=== PATIENT | male | born 1980 | race American Indian/Alaskan Native ===

== ENCOUNTER 2018-05-17 06:59 | Emergency (ER) | payer SELFPAY ==
[2018-05-17] MEDS ORDERED: ASPIRIN PO ONE (07:07)
[2018-05-17 07:22] LABS: Basophils % (Auto) 0.9 % (0.0-1.8); Eosinophils # (Auto) 0.2 K/mm3 (0.0-0.4); Eosinophils % (Auto) 3.7 % (0.0-4.3); Hematocrit 38.9 % (35.5-45.6); Hemoglobin 12.7 gm/dl (11.8-15.2); Lymphocytes # (Auto) 1.5 K/mm3 (1.2-5.4); Lymphocytes % (Auto) 31.4 % (13.4-35.0); Mean Corpuscular HGB Conc 33 % (32-34); Mean Corpuscular Volume 93 fl (84-94); Monocytes # (Auto) 0.5 K/mm3 (0.0-0.8); Monocytes % (Auto) 10.7 % (0.0-7.3); Platelet Count 332 K/mm3 (140-440); Red Blood Count 4.18 M/mm3 (3.65-5.03); Red Cell Distribution Width 17.4 % (13.2-15.2)
[2018-05-17 07:43] LABS: BUN/Creatinine Ratio 14; Blood Urea Nitrogen 11 mg/dL (9-20); Calcium 8.4 mg/dL (8.4-10.2); Hemolysis Index 3
--- NOTE | 2018-05-17 07:54 | XRay Report ---
Single view chest: Next History: Chest pain. Findings: Normal cardiomediastinal silhouette. Trachea is midline. No consolidation, pneumothorax or pleural effusion. Impression: No acute cardiopulmonary findings.
[2018-05-17] MEDS ORDERED: TORADOL IV ONE (10:57)
[2018-05-17] MEDS ORDERED: PEPCID IV ONE (10:57)
[2018-05-17] MEDS ORDERED: TYLENOL PO ONE (10:57)
[2018-05-17] MEDS ORDERED: NACL 0.9% 500 ML 500 ML IV ONE (10:57)
[2018-05-17] MEDS ORDERED: CARAFATE PO ONE (10:57)
--- NOTE | 2018-05-17 10:58 | Emergency Department Report ---
ED Chest Pain HPI - General Chief Complaint: Chest Pain Stated Complaint: EXTREMITY SWELLING CHEST PAIN Time Seen by Provider: 05/17/18 10:44 Source: patient, RN notes reviewed Mode of arrival: Ambulatory Limitations: No Limitations - History of Present Illness Initial Comments: This is a 37-year-old gentleman who is not known to this provider previously. The patient does not have a primary care doctor. He does not have chronic medical conditions that he is aware. There is a family history of hypertension, but otherwise no heart disease that he is aware of. He appears to be obese. He presents to the emergency room with a complaint of chest pain, subjective right hand swelling, subjective left pointer finger swelling, and subjective left leg swelling, from the knee distal. Swelling has been present for 2-3 days. It is constant, painless, does not radiate anywhere, does not have exacerbating or relieving factors. He denies DVT, pulmonary embolus risk factors. He is right-hand dominant. He reports with a secondary complaint of chest pain. The chest pain is central. It has been present intermittently since 1 in the morning. It radiates to the right side of the chest. There is no vomiting or diaphoresis. He describes "trouble breathing", and indicates that this is been going on for 2 days. He does not believe that it is exertional. He is currently experiencing chest pain, which has been constant, since 7:00 in the morning. This pain does not radiate anywhere, and increased with palpation and decreases with rest. He denies recent cocaine use, and endorses aspirin consumption within the past 3 days. On review of systems, the patient indicates that he feels sleepy during the day, and sometimes will fall asleep without wanting to. As far as the patient knows, he does not have a history of obstructive sleep apnea. He's not had a sleep test that he is aware of. He endorses that he feels on rested and tired, even after full night's sleep. He also endorses that he snores at night. MD Complaint: chest pain -: Gradual, days(s) Onset: during rest Pain Location: left chest, right chest Severity scale (0 -10): 10 Quality: aching Consistency: intermittent Improves With: rest Worsens With: palpation re: dyspnea Aspirin use within the Past 7 Days: (1) Yes - Related Data Previous Rx's Medication Instructions Recorded Last Taken Type Acetaminophen [Tylenol Arthritis] 650 mg PO Q6HR PRN #30 tablet.er 05/17/18 Unknown Rx Aspirin [Aspirin BABY CHEW TAB] 81 mg PO QDAY #30 tab.chew 05/17/18 Unknown Rx Ibuprofen [Motrin] 600 mg PO Q8H PRN #30 tablet 05/17/18 Unknown Rx levoFLOXacin [Levaquin] 750 mg PO QDAY #6 tablet 05/17/18 Unknown Rx Allergies Allergy/AdvReac Type Severity Reaction Status Date / Time No Known Allergies Allergy Verified 05/17/18 07:05 Heart Score - HEART Score History: Slightly suspicious EKG: Non-specific Age: < 45 Risk factors: 1-2 risk factors Troponin: < normal limit HEART Score: 2 - Critical Actions Critical Actions: 0-3 pts:0.9-1.7%risk of adverse cardiac event.Candidate for d ischarge ED Review of Systems ROS: Stated complaint: EXTREMITY SWELLING CHEST PAIN Other details as noted in HPI Constitutional: denies: fever, malaise Eyes: denies: vision change ENT: denies: epistaxis Respiratory: shortness of breath Cardiovascular: chest pain Gastrointestinal: denies: nausea, vomiting Genitourinary: denies: urgency Musculoskeletal: arthralgia, myalgia Skin: denies: lesions Neurological: denies: weakness Psychiatric: denies: anxiety ED Past Medical Hx - Past Medical History Previous Medical History?: Yes Hx Arthritis: Yes (gout) Hx Asthma: Yes - Surgical History Past Surgical History?: No - Social History Smoking Status: Never Smoker Substance Use Type: None - Medications Home Medications: Home Medications Medication Instructions Recorded Confirmed Last Taken Type Acetaminophen [Tylenol Arthritis] 650 mg PO Q6HR PRN #30 tablet.er 05/17/18 Unknown Rx Aspirin [Aspirin BABY CHEW TAB] 81 mg PO QDAY #30 tab.chew 05/17/18 Unknown Rx Ibuprofen [Motrin] 600 mg PO Q8H PRN #30 tablet 05/17/18 Unknown Rx levoFLOXacin [Levaquin] 750 mg PO QDAY #6 tablet 05/17/18 Unknown Rx ED Physical Exam - General Limitations: No Limitations General appearance: alert, in no apparent distress, obese - Head Head exam: Present: atraumatic, normocephalic - Eye Eye exam: Present: normal appearance, EOMI. Absent: nystagmus - ENT ENT exam: Present: normal exam, normal orophraynx, mucous membranes moist, normal external ear exam - Neck Neck exam: Present: normal inspection, full ROM. Absent: tenderness, meningismus - Respiratory Respiratory exam: Present: normal lung sounds bilaterally, chest wall tend erness. Absent: respiratory distress - Cardiovascular Cardiovascular Exam: Present: regular rate, normal rhythm, normal heart sounds. Absent: bradycardia, tachycardia, irregular rhythm, systolic murmur, diastolic murmur, rubs, gallop - GI/Abdominal GI/Abdominal exam: Present: soft. Absent: distended, tenderness, guarding, rebound, rigid, pulsatile mass - Rectal Rectal exam: Present: deferred - Extremities Exam Extremities exam: Present: normal inspection, full ROM, other (2+ pulses noted in the bilateral upper, lower extremities. Compartments soft. No long bony tenderness. The pelvis is stable.). Absent: pedal edema, joint swelling, calf tenderness - Back Exam Back exam: Present: normal inspection, full ROM. Absent: tenderness, CVA tenderness (R), paraspinal tenderness, vertebral tenderness - Neurological Exam Neurological exam: Present: alert, oriented X3, CN II-XII intact, other (myExtraocular movements intact. Tongue midline. No facial droop. Facial sensation intact to light touch in the V1, V2, V3 distribution bilaterally. 5 and 5 strength in 4 extremities.. Sensation is intact to light touch in 4 extremities.). Absent: motor sensory deficit - Psychiatric Psychiatric exam: Present: normal affect, normal mood - Skin Skin exam: Present: warm, dry, intact, normal color. Absent: rash ED Course Vital Signs 05/17/18 05/17/18 05/17/18 07:00 09:46 10:30 Temperature 97.7 F Pulse Rate 95 H 106 H Respiratory 18 17 18 Rate Blood Pressure 197/133 O2 Sat by Pulse 99 98 98 Oximetry 05/17/18 05/17/18 05/17/18 10:31 10:46 11:00 Temperature Pulse Rate 85 81 Respiratory 18 17 Rate Blood Pressure 163/110 163/110 163/96 O2 Sat by Pulse 99 98 99 Oximetry 05/17/18 05/17/18 05/17/18 11:16 11:30 11:46 Temperature Pulse Rate 67 95 H 72 Respiratory 15 20 17 Rate Blood Pressure 163/96 163/96 163/96 O2 Sat by Pulse 97 98 97 Oximetry 05/17/18 05/17/18 05/17/18 12:00 12:16 12:40 Temperature Pulse Rate 90 92 H 92 H Respiratory 15 16 Rate Blood Pressure 163/96 163/96 O2 Sat by Pulse 98 96 Oximetry 05/17/18 05/17/18 05/17/18 12:46 13:23 13:31 Temperature Pulse Rate 92 H 82 Respiratory 13 16 Rate Blood Pressure 169/97 169/97 169/97 O2 Sat by Pulse 98 97 98 Oximetry 05/17/18 05/17/18 05/17/18 13:45 14:01 14:15 Temperature Pulse Rate 83 75 79 Respiratory 21 15 20 Rate Blood Pressure 169/97 169/97 169/97 O2 Sat by Pulse 98 97 96 Oximetry 05/17/18 05/17/18 05/17/18 14:31 14:47 14:50 Temperature 98.5 F Pulse Rate 98 H Respiratory 15 Rate Blood Pressure 169/97 169/97 O2 Sat by Pulse 97 Oximetry - Reevaluation(s) Reevaluation #1: 05/17/18 11:52 Differential diagnosis, including but not limited to: GERD, gastritis, hiatal hernia, acute coronary syndrome, pulmonary hypertension, pulmonary embolus, costochondritis, arthritis, obesity, DVT, obstructive sleep apnea Assessment and plan: 37-year-old gentleman with no pulmonary embolus or DVT risk factors, who is low risk by well's criteria, was not tachycardic, who is not hypoxic, who is perc negative, with reproducible chest wall pain, currently appears comfortable, and in no acute distress, having a full conversation with family members. Patient at low risk by the FARHAD score, low risk by the heart score. Initially hypertensive when he came in, now blood pressure in the 160s. I do not appreciate any significant edema on his upper, lower extremities, and he has full active and passive range of motion on the upper, lower extremities, with no evidence of fracture, cellulitis, compartment syndrome, or dislocation. We will treat his pain, obtain serial EKGs, serial troponins, send a d-dimer, and obtain lower extremity DVT study. We will reassess after his data points have resulted. I suspect that the patient may have undiagnosed pulmonary hypertension, obstructive sleep apnea. He does not have crackles or rales, and does not appear to be floridly fluid overloaded. Reevaluation #2: 05/17/18 13:38 CT scan of the chest is negative for pulmonary embolism. A right lower lobe infiltrate is noted. Blood pressure is improved. Patient walking around comfortably, and in no acute distress. We will start the patient empirically on levofloxacin, and aspirin. He will be discharged with appropriate pain medication. He is instructed to follow-up with an outpatient head of marketing or sleep physician for his presumed non-diagnosed obstructive sleep apnea, and he'll be instructed to follow-up with an outpatient doctor of nurse anesthesia for presumed hypertension, and chest pain, troponins negative 3, he is suitable to follow up as an outpatient to complete his outp atient cardiac risk stratification, and to follow up with a primary care doctor for general medical maintenance. Reevaluation #3: 05/17/18 14:29 Troponin negative 3. Resting comfortably. Patient in no acute distress. Reevaluation #4: 05/17/18 14:36 Troponin negative 3. Patient resting comfortably currently, and is in no acute distress. Explained need to follow up with outpatient primary care, cardiology, and sleep specialist. Patient verbalizes understanding. He reports his pain is improved. Patient is observed in the emergency room for approximately 7 hours without clinical decompensation, and he is suitable to be discharged. Extensive discussion had with patient regarding need for diet and left modification, as well as weight loss. He verbalizes understanding. Reevaluation #5: 05/17/18 19:00 DVT study is negative FARHAD score - Farhad Score Age > 65: (0) No Aspirin use within the Past 7 Days: (1) Yes 3 or more CAD Risk Factors: (0) No 2 or more Angina events in past 24 hrs: (0) No Known CAD with more than 50% Stenosis: (0) No Elevated Cardiac Markers: (0) No ST Deviation Greater than 0.5mm: (0) No FARHAD Score: 1 ED Medical Decision Making - Lab Data Result diagrams: 05/17/18 07:10 05/17/18 07:09 Vital Signs 05/17/18 07:00 Temperature 97.7 F Pulse Rate 95 H Respiratory 18 Rate Blood Pressure 197/133 O2 Sat by Pulse 99 Oximetry Lab Results 04/03/19 04/03/19 04/03/19 Range/Units 07:09 07:10 10:14 WBC 4.7 (4.5-11.0) K/mm3 RBC 4.18 (3.65-5.03) M/mm3 Hgb 12.7 (11.8-15.2) gm/dl Hct 38.9 (35.5-45.6) % MCV 93 (84-94) fl MCH 30 (28-32) pg MCHC 33 (32-34) % RDW 17.4 H (13.2-15.2) % Plt Count 332 (140-440) K/mm3 Lymph % (Auto) 31.4 (13.4-35.0) % Cam[place] % (Auto) 10.7 H (0.0-7.3) % Eos % (Auto) 3.7 (0.0-4.3) % Baso % (Auto) 0.9 (0.0-1.8) % Lymph # 1.5 (1.2-5.4) K/mm3 Cam[place] # 0.5 (0.0-0.8) K/mm3 Eos # 0.2 (0.0-0.4) K/mm3 Baso # 0.0 (0.0-0.1) K/mm3 Seg Neutrophils % 53.3 (40.0-70.0) % Seg Neutrophils # 2.5 (1.8-7.7) K/mm3 PT (12.2-14.9) Sec. INR (0.87-1.13) APTT (24.2-36.6) Sec. D-Dimer (0-234) ng/mlDDU Sodium 136 L (137-145) mmol/L Potassium 3.9 (3.6-5.0) mmol/L Chloride 100.3 (98-107) mmol/L Carbon Dioxide 25 (22-30) mmol/L Anion Gap 15 mmol/L BUN 11 (9-20) mg/dL Creatinine 0.8 (0.8-1.5) mg/dL Estimated GFR > 60 ml/min BUN/Creatinine Ratio 14 % Glucose 115 H (75-100) mg/dL Calcium 8.4 (8.4-10.2) mg/dL Troponin T < 0.010 < 0.010 (0.00-0.029) ng/mL 05/17/18 Range/Units 11:09 WBC (4.5-11.0) K/mm3 RBC (3.65-5.03) M/mm3 Hgb (11.8-15.2) gm/dl Hct (35.5-45.6) % MCV (84-94) fl MCH (28-32) pg MCHC (32-34) % RDW (13.2-15.2) % Plt Count (140-440) K/mm3 Lymph % (Auto) (13.4-35.0) % [place] % (Auto) (0.0-7.3) % Eos % (Auto) (0.0-4.3) % Baso % (Auto) (0.0-1.8) % Lymph # (1.2-5.4) K/mm3 [place] # (0.0-0.8) K/mm3 Eos # (0.0-0.4) K/mm3 Baso # (0.0-0.1) K/mm3 Seg Neutrophils % (40.0-70.0) % Seg Neutrophils # (1.8-7.7) K/mm3 PT 11.8 L (12.2-14.9) Sec. INR 0.82 L (0.87-1.13) APTT 24.5 (24.2-36.6) Sec. D-Dimer 340.85 H (0-234) ng/mlDDU Sodium (137-145) mmol/L Potassium (3.6-5.0) mmol/L Chloride (98-107) mmol/L Carbon Dioxide (22-30) mmol/L Anion Gap mmol/L BUN (9-20) mg/dL Creatinine (0.8-1.5) mg/dL Estimated GFR ml/min BUN/Creatinine Ratio % Glucose (75-100) mg/dL Calcium (8.4-10.2) mg/dL Troponin T (0.00-0.029) ng/mL - EKG Data -: EKG Interpreted by Ks EKG shows normal: sinus rhythm Rate: normal - EKG Data When compared to previous EKG there are: previous EKG unavailable 05/17/18 11:54 EKG #1 demonstrates sinus, 85 bpm, normal axis, normal intervals, QTC prolonged. EKG #2 demonstrates normal sinus, 78 bpm, normal axis, normal intervals, not consistent with ST elevation myocardial infarction. - Radiology Data Radiology results: report reviewed, image reviewed Critical care attestation.: If time is entered above; I have spent that time in minutes in the direct care of this critically ill patient, excluding procedure time. ED Disposition Clinical Impression: Right-sided chest pain, Elevated blood pressure reading Disposition: TO HOME OR SELFCARE Is pt being admited?: No Does the pt Need Aspirin: No Condition: Stable Instructions: Chest Pain (ED), Costochondritis (ED), Hypertension (ED) Additional Instructions: Drink 4-6 cups of water per day for the next 3-5 days. Rest, avoid heavy lifting and avoid strenuous physical activity. Take the pain medication as needed/directed, aspirin, antibiotics as directed. Follow up with a doctor of nurse anesthesia within the next 3 days for elevated blood pressure and complaints of chest pain. Chest pain likely coming from right-sided pneumonia. Local cardiology practices include [facility], [place]. Patient should follow up with a sleep specialist within the next month for probable obstructive sleep apnea. Not following up as recommended may result in undiagnosed or worsening sleep apnea, which may cause pulmonary hypertension, heart failure, stroke, heart attack, disability. I also recommend aggressive weight loss, physical activities as tolerated, and modification of diet to include more fruits, fibers, vegetables, avoidance of sugar, sugary drinks, avoidance of caffeine, and avoidance of fried, heavy, spicy foods. Local sleep specialist include Drs. Vann, Dr Cunha patient should follow-up with the primary care doctor within the next month. Patient is found to have hypertension, elevated blood pressure in the emergency room. Typically, diet and weight loss and diet modifications on the first line treatment for treatment of elevated blood pressure, hypertension. Long-term complications of hypertension includes stroke, heart attack, disability, pa ralysis, loss of quality of life. Local primary care offices include [facility], [facility]. Please return to the emergency room right away with new, worsening or different symptoms, projectile vomiting, change in mental status, confusion, symptoms not present on the initial ER evaluation. Prescriptions: Aspirin [Aspirin BABY CHEW TAB] 81 mg PO QDAY #30 tab.chew levoFLOXacin [Levaquin] 750 mg PO QDAY #6 tablet Ibuprofen [Motrin] 600 mg PO Q8H PRN #30 tablet PRN Reason: Pain Acetaminophen [Tylenol Arthritis] 650 mg PO Q6HR PRN #30 tablet.er PRN Reason: Pain Referrals: FABIAN VANN MD [Staff Physician] - 3-5 Days PAOLA CUNHA MD [Staff Physician] - 3-5 Days [facility] [Provider Group] - 3-5 Days [facility] [Provider Group] - 3-5 Days [facility] [Provider Group] - 3-5 Days [facility] [Provider Group] - 3-5 Days Forms: Work/School Release Form(ED)
[2018-05-17 11:44] LABS: INR 0.82 (0.87-1.13)
[2018-05-17 11:45] LABS: Partial Thromboplastin Time 24.5 Sec. (24.2-36.6)
[2018-05-17 12:26] LABS: Alanine Aminotransferase 26 units/L (7-56)
[2018-05-17 12:28] LABS: Bilirubin,Direct < 0.2 mg/dL (0-0.2)
--- NOTE | 2018-05-17 13:32 | Cat Scan Report ---
CTA chest: History: Dyspnea. Findings: No evidence of aneurysm or pulmonary embolism. Faint ill-defined density right lower lobe measuring approximately 2 cm in diameter probably suggestive pneumonitis or discoid atelectasis. No pleural or pericardial effusion. No mediastinal mass. Pleurodiaphragmatic adhesions left lower lobe. Impression: Infiltrate right lower lobe. No definite evidence of pulmonary embolism
[2018-05-17 15:01] VITALS: BP 169/97
--- NOTE | 2018-05-17 15:46 | Vascular Lab Report ---
PROCEDURE: VL VENOUS DUPLEX LE BILAT TECHNIQUE: Duplex Doppler ultrasound examination of the venous system of the right leg and left leg HISTORY: Bilateral lower ext swelling COMPARISONS: None FINDINGS: RIGHT LEG: Normal compressibility, vascular patency, and augmentation are present diffusely throughout the visua lized portion of the deep veins. No abnormal intraluminal echoes are visualized to suggest deep vein thrombus. IMPRESSION: No ultrasound evidence of DVT in the right leg LEFT LEG: Normal compressibility, vascular patency, and augmentation are present diffusely throughout the visua lized portion of the deep veins. No abnormal intraluminal echoes are visualized to suggest deep vein thrombus. A nonspecific popliteal fossa hypoechoic focus is suggestive of a very small fluid collection measuri ng 0.9 x 1.8 cm. Color Doppler reveals no internal vascularity in this lesion. This may reflect a Navin er's cyst. Nonspecific prominent lymph node in the left inguinal fossa with short axis dimension 14 mm. Deep venous reflux suggested in left popliteal vein. IMPRESSION: Popliteal fossa fluid collection suggestive of very small Casillas's cyst. No ultrasound evidence of DVT in the left leg Deep venous reflux suggested in left popliteal vein This document is electronically signed by Casey Medrano MD., May 17 2018 03:44:17 PM ET
== END 2018-05-17 14:50 | disposition home or self-care (01) ==
LOC: ED 06:59
DX: R07.89 Other chest pain (principal); I10 Essential (primary) hypertension; M10.9 Gout, unspecified; J45.909 Unspecified asthma, uncomplicated; Z79.82 Long term (current) use of aspirin
CPT/HCPCS: 36415; 71045; 71275; 80048; 80076; 84484; 85025; 85379; 85610; 85730; 93005; 93010; 93970; 96374; 96375; 99285; J1885; J7040; Q9967

== ENCOUNTER 2018-10-30 09:48 | Emergency (ER) | payer OTHER ==
[2018-10-30 10:20] VITALS: BP 134/83
[2018-10-30] MEDS ORDERED: TORADOL IM ONE (10:55)
[2018-10-30] MEDS ORDERED: FLEXERIL PO ONE (10:55)
--- NOTE | 2018-10-30 11:00 | Emergency Department Report ---
HPI - General Chief Complaint: Back Pain/Injury Time Seen by Provider: 10/30/18 10:46 - HPI HPI: 38-year-old -[place] male presents to the emergency department via EMS from home with a complaint of mid back pain that started last night and has wors ened since. The pain wraps around towards the front of the abdomen. It worsens with any type of movement and with breathing. 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 He denies any problems with bowel or bladder, numbness or paresthesias or any neurological deficits. He has a past medical history of gout, asthma, hypertension. He has some chronic right knee pain as well, as well as some knee swelling, that he says is from arthritis and gout. He does not have a primary care physician. No recent travel or sick contacts at home. ED Past Medical Hx - Past Medical History Previous Medical History?: Yes Hx Hypertension: Yes Hx Arthritis: Yes (gout) Hx Asthma: Yes - Surgical History Past Surgical History?: No - Social History Smoking Status: Never Smoker - Medications Home Medications: Home Medications Medication Instructions Recorded Confirmed Last Taken Type Acetaminophen [Tylenol Arthritis] 650 mg PO Q6HR PRN #30 tablet.er 05/17/18 Unknown Rx Aspirin [Aspirin BABY CHEW TAB] 81 mg PO QDAY #30 tab.chew 05/17/18 Unknown Rx Ibuprofen [Motrin] 600 mg PO Q8H PRN #30 tablet 05/17/18 Unknown Rx levoFLOXacin [Levaquin] 750 mg PO QDAY #6 tablet 05/17/18 Unknown Rx Cyclobenzaprine [Flexeril] 10 mg PO TID PRN #12 tablet 10/30/18 Unknown Rx ED Review of Systems ROS: Stated complaint: BACK PAIN Other details as noted in HPI Comment: All other systems reviewed and negative Constitutional: denies: chills, fever Respiratory: denies: cough, wheezing Cardiovascular: denies: chest pain Musculoskeletal: back pain, arthralgia (chronic right knee pain), myalgia Skin: denies: rash, lesions Neurological: denies: weakness, numbness, paresthesias Physical Exam - Physical Exam Vital Signs: Vital Signs 10/30/18 10:19 Temperature 99.4 F Pulse Rate 83 Respiratory 22 Rate Blood Pressure 134/83 O2 Sat by Pulse 99 Oximetry Physical Exam: GENERAL: The patient is well-developed well-nourished. HENT: Normocephalic. Atraumatic. Patient has moist mucous membranes. EYES: Extraocular motions are intact. NECK: Supple. Trachea is midline. CHEST/LUNGS: Clear to auscultation. There is no respiratory distress noted. HEART/CARDIOVASCULAR: Regular. There is no tachycardia. There is no murmur. ABDOMEN: Abdomen is soft, nontender. Patient has normal bowel sounds. Obese habitus. SKIN: Skin is warm and dry. NEURO: The patient is awake, alert, and oriented. The patient is cooperative. The patient has no focal neurologic deficits. Normal speech. MUSCULOSKELETAL: There is no tenderness or deformity. There is no limitation range of motion. There is no evidence of acute injury. BACK: No midline thoracic or lumbar tenderness to palpation, step-off or d eformity. There is bilateral mid thoracic paraspinal tenderness to palpation. ED Course Vital Signs 10/30/18 10:19 Temperature 99.4 F Pulse Rate 83 Respiratory 22 Rate Blood Pressure 134/83 O2 Sat by Pulse 99 Oximetry ED Medical Decision Making - Medical Decision Making This patient presents with some mid back pain that has been going on since last night. The pain is reproducible to palpation and also worsens with certain movements he makes. There is no problem with bowel or bladder, numbness or paresthesias, or any neurological deficits. No obvious trauma or injury. For these reasons, I did not feel that any imaging of the thoracic spine or back was necessary at this time. He was given a dose of Toradol and Flexeril and upon reevaluation he is feeling improved. The patient was able to ambulate in the emergency department and both appeared and felt stable. He appears low suspicion for any of the emergent back conditions such as cauda equina, epidural abscess or cord compression syndrome. Patient has been given a referral for orthopedist and primary care. He will return to the ER if any worsening of his symptoms or any acute distress. - Differential Diagnosis muscle strain, muscle spasm, herniated disc Critical Care Time: No Critical care attestation.: If time is entered above; I have spent that time in minutes in the direct care of this critically ill patient, excluding procedure time. ED Disposition Clinical Impression: Back pain Qualifiers: Back pain location: thoracic back pain Chronicity: unspecified Back pain laterality: bilateral Qualified Code(s): M54.6 - Pain in thoracic spine Disposition: TO HOME OR SELFCARE Is pt being admited?: No Condition: Stable Instructions: Back Pain (ED) Additional Instructions: Please follow-up with a primary care physician in the next few days. I am also giving you a referral for a local orthopedist, Dr. Woods, to follow up regarding your back pain. Return to the emergency Department with any worsening of your symptoms or any acute distress. You have been prescribed a medication that is sedating and therefore should not be taken prior to driving, working, and responsible for children and in no way should be mixed with alcohol of any quantity. Prescriptions: Cyclobenzaprine [Flexeril] 10 mg PO TID PRN #12 tablet PRN Reason: Muscle Spasm Referrals: WENDI YOUSIF MD [Staff Physician] - 2-3 Days ANTHONY WOODS MD [Staff Physician] - 2-3 Days [facility] [Outside] - 2-3 Days Forms: Work/School Release Form(ED) Time of Disposition: 13:02
== END 2018-10-30 13:31 | disposition home or self-care (01) ==
LOC: ED 09:48
DX: M54.89 Other dorsalgia (principal)
CPT/HCPCS: 96372; 99283; J1885

== ENCOUNTER 2018-12-13 00:18 | Inpatient (IN) | payer OTHER ==
[2018-12-13] MEDS ORDERED: ASPIRIN 325 MG TAB PO ONE (00:28)
[2018-12-13 01:22] LABS: Basophils % (Auto) 0.3 % (0.0-1.8); Eosinophils # (Auto) 0.1 K/mm3 (0.0-0.4); Eosinophils % (Auto) 0.7 % (0.0-4.3); Lymphocytes # (Auto) 1.5 K/mm3 (1.2-5.4); Lymphocytes % (Auto) 15.2 % (13.4-35.0); Mean Corpuscular HGB Conc 32 % (32-34); Mean Corpuscular Volume 95 fl (84-94); Monocytes # (Auto) 0.6 K/mm3 (0.0-0.8); Monocytes % (Auto) 6.1 % (0.0-7.3); Platelet Count 329 K/mm3 (140-440); Red Blood Count 1.55 M/mm3 (3.65-5.03)
[2018-12-13 01:25] LABS: Red Cell Distribution Width 20.5 % (13.2-15.2)
--- NOTE | 2018-12-13 01:25 | XRay Report ---
CHEST 1 VIEW 0046 INDICATION / CLINICAL INFORMATION: Chest Pain. COMPARISON: 05/17/2018 FINDINGS: SUPPORT DEVICES: None HEART / MEDIASTINUM: No significant abnormality. LUNGS / PLEURA: Vague density is now seen in the right upper lobe which could represent developing pn eumonitis. Left lung field remains clear. No pneumothorax. ADDITIONAL FINDINGS: No significant additional findings. IMPRESSION: Possible pneumonitis developing in the right upper lobe. Recommend follow-up and clinical correlation. Signer Name: Efren Ybarra MD Signed: 12/13/2018 1:20 AM Workstation Name: [id number]
[2018-12-13 01:28] LABS: Hematocrit 14.8 % (35.5-45.6); Hemoglobin 4.8 gm/dl (11.8-15.2)
[2018-12-13] MEDS ORDERED: SODIUM CHLORIDE 0.9% 500 ML 500 ML IV ONE (01:32)
[2018-12-13] MEDS ORDERED: PANTOPRAZOLE 40 MG INJ IV ONE (01:36)
--- NOTE | 2018-12-13 01:43 | Emergency Department Report ---
HPI - General Chief Complaint: Syncope Time Seen by Provider: 12/13/18 01:12 - [facility] HPI: Room 9 The patient is a 38-year-old male presenting with chief complaint of syncope and chest pain. The patient states for the past 2-3 days she's noticed black stool. Patient is to nausea but denies vomiting. Today while sitting in a car and patient became diaphoretic and his head went back and his eyes rolled to the back of his head. Family states he was unresponsive for about 6-7 minutes. This happened a second time and the family brought the patient into the home. 20 minutes later while seated he had third episode of syncope with his eyes rolling to the back of his head. He states at this time he has some right-sided chest pain associated with shortness of breath. Patient denies any recent flights or long car trips. Location: [See above] Duration: [See above] Quality: [See above] Severity: [See above] Timing: [See above] Context: [See above] Modifying factors: [See above] Associated signs and symptoms: [see above] ED Past Medical Hx - Past Medical History Previous Medical History?: Yes Hx Hypertension: Yes Hx Arthritis: Yes (gout) Hx Asthma: Yes - Surgical History Past Surgical History?: No - Family History Family history: no significant - Social History Smoking Status: Never Smoker Substance Use Type: None (denies illicit drug use), Alcohol (occasional) - Medications Home Medications: Home Medications Medication Instructions Recorded Confirmed Last Taken Type Acetaminophen [Tylenol Arthritis] 650 mg PO Q6HR PRN #30 tablet.er 05/17/18 Unknown Rx Aspirin [Aspirin BABY CHEW TAB] 81 mg PO QDAY #30 tab.chew 05/17/18 Unknown Rx Ibuprofen [Motrin] 600 mg PO Q8H PRN #30 tablet 05/17/18 Unknown Rx levoFLOXacin [Levaquin] 750 mg PO QDAY #6 tablet 05/17/18 Unknown Rx Cyclobenzaprine [Flexeril] 10 mg PO TID PRN #12 tablet 10/30/18 Unknown Rx ED Review of Systems ROS: Stated complaint: PASSED OUT VOMITING Other details as noted in HPI Constitutional: diaphoresis Eyes: denies: eye pain ENT: denies: throat pain Respiratory: shortness of breath Cardiovascular: chest pain Endocrine: no symptoms reported Gastrointestinal: nausea, melena. denies: abdominal pain, vomiting Genitourinary: denies: dysuria Musculoskeletal: denies: back pain Neurological: denies: headache Physical Exam - Physical Exam Physical Exam: GENERAL: The patient is well-developed well-nourished male lying on stretcher not appearing to be in acute distress. [] HEENT: Normocephalic. Atraumatic. Extraocular motions are intact. Patient has moist mucous membranes. NECK: Supple. No meningitic signs are noted. There is no adenopathy noted. CHEST/LUNGS: Clear to auscultation. There is no respiratory distress noted. HEART/CARDIOVASCULAR: Regular. There is tachycardia. There is no gallop rub or murmur. ABDOMEN: Abdomen is soft, nontender. Patient has normal bowel sounds. There is no abdominal distention. SKIN: There is no rash. There is no edema. There is no diaphoresis. NEURO: The patient is awake, alert, and oriented. The patient is cooperative. The patient has no focal neurologic deficits. The patient has normal speech. Cranial nerves II-12 grossly intact, no drift MUSCULOSKELETAL: There is no evidence of acute injury. RECTAL: Melena. Guaiac positive ED Medical Decision Making - Lab Data Result diagrams: 12/13/18 01:09 12/13/18 01:09 Laboratory Tests 12/13/18 12/13/18 12/13/18 01:09 01:09 03:38 WBC 9.8 RBC 1.55 L Hgb 4.8 L* Hct 14.8 L* MCV 95 H MCH 31 MCHC 32 RDW 20.5 H Plt Count 329 Lymph % (Auto) 15.2 [place] % (Auto) 6.1 Eos % (Auto) 0.7 Baso % (Auto) 0.3 Lymph # 1.5 [place] # 0.6 Eos # 0.1 Baso # 0.0 Seg Neutrophils % 77.7 H Seg Neutrophils # 7.6 Sodium 139 Potassium 3.6 Chloride 102.6 Carbon Dioxide 23 Anion Gap 17 BUN 35 H Creatinine 1.0 Estimated GFR > 60 BUN/Creatinine Ratio 35 Glucose 185 H Calcium 8.2 L Troponin T < 0.010 < 0.010 Blood Type Crossmatch 12/13/18 03:38 WBC RBC Hgb Hct MCV MCH MCHC RDW Plt Count Lymph % (Auto) [place] % (Auto) Eos % (Auto) Baso % (Auto) Lymph # [place] # Eos # Baso # Seg Neutrophils % Seg Neutrophils # Sodium Potassium Chloride Carbon Dioxide Anion Gap BUN Creatinine Estimated GFR BUN/Creatinine Ratio Glucose Calcium Troponin T Blood Type A POSITIVE Crossmatch See Detail - EKG Data -: EKG Interpreted by Me EKG shows normal: sinus rhythm Rate: tachycardia (128 bpm) - EKG Data Interpretation: other (no ischemic changes seen) - Differential Diagnosis symptomatic anemia, ACS, dehydration Critical care attestation.: If time is entered above; I have spent that time in minutes in the direct care of this critically ill patient, excluding procedure time. ED Disposition Clinical Impression: Symptomatic anemia, Upper GI bleed, Syncope Disposition: OP ADMIT IP TO THIS HOSP Is pt being admited?: Yes Does the pt Need Aspirin: No Condition: Fair Instructions: Syncope (ED) Referrals: PRIMARY CARE, [Primary Care Provider] - 3-5 Days Time of Disposition: 04:24 (hospitalist paged (Dr Newberry))
[2018-12-13 01:44] LABS: BUN/Creatinine Ratio 35; Blood Urea Nitrogen 35 mg/dL (9-20); Calcium 8.2 mg/dL (8.4-10.2); Hemolysis Index 2
[2018-12-13] MEDS: PANTOPRAZOLE 80 MG in SODIUM CHLORIDE 0.9% 100 ML IV SCH ×2 (02:49→13:16)
[2018-12-13] MEDS ORDERED: SODIUM CHLORIDE 0.9% 1000 ML 1,000 ML IV ONE (04:21)
[2018-12-13] MEDS ORDERED: ONDANSETRON 4 MG/2 ML INJ IV PRN (05:04)
[2018-12-13] MEDS ORDERED: ACETAMINOPHEN 325 MG TAB PO PRN (05:04)
[2018-12-13 05:10] LABS: INR 1.05 (0.87-1.13)
[2018-12-13 05:11] LABS: Partial Thromboplastin Time 21.3 Sec. (24.2-36.6)
[2018-12-13] MEDS ORDERED: PROMETHAZINE 25 MG RECT SUPP PR PRN (05:19)
--- NOTE | 2018-12-13 05:21 | History and Physical Report ---
History of Present Illness Date of examination: 12/13/18 Date of admission: 12/13/18 Chief complaint: Syncope History of present illness: Pt is a 38 year old male with no prior PMHx who was brought to the ER, after he lost consciousness and passes out. Pt states that his sister was there when he passed out, EMS was called and he was taking to the ER for evaluation. Pt also states that he has been having SOB on exertion, he has been craving ice and dark stool, pt also reports that he passed out twice this evening. He denies any acute illness, denies abdominal pain, denies nausea, denies vomiting, denies diarrhea, denies fever, denies chills. In the ER pt's H&H was 4.8/14.8, he was started on blood transfusion, GI was consulted and admitted for further evalua tion and treatment. Past History Past Medical History: hypertension Past Surgical History: No surgical history Social history: no significant social history Family history: no significant family history Medications and Allergies Allergies Allergy/AdvReac Type Severity Reaction Status Date / Time No Known Allergies Allergy Verified 05/17/18 07:05 Home Medications Medication Instructions Recorded Confirmed Last Taken Type Acetaminophen [Tylenol Arthritis] 650 mg PO Q6HR PRN #30 tablet.er 05/17/18 Unknown Rx Aspirin [Aspirin BABY CHEW TAB] 81 mg PO QDAY #30 tab.chew 05/17/18 Unknown Rx Ibuprofen [Motrin] 600 mg PO Q8H PRN #30 tablet 05/17/18 Unknown Rx levoFLOXacin [Levaquin] 750 mg PO QDAY #6 tablet 05/17/18 Unknown Rx Cyclobenzaprine [Flexeril] 10 mg PO TID PRN #12 tablet 10/30/18 Unknown Rx Active Meds: Active Medications Acetaminophen (Tylenol) 650 mg PO Q4H PRN PRN Reason: Pain MILD(1-3)/Fever >100.5/BAUM Pantoprazole Sodium 80 mg/ (Sodium Chloride) 100 mls @ 10 mls/hr IV DIRECT HERB Last Admin: 12/13/18 02:49 Dose: 8 mg/hr, 10 mls/hr Documented by: Ondansetron HCl (Zofran) 4 mg IV Q8H PRN PRN Reason: Nausea And Vomiting Promethazine HCl (Phenergan) 25 mg NV Q6HR PRN PRN Reason: N/V IF NPO AND NO IV ACCESS Sodium Chloride (Sodium Chloride Flush Syringe 10 Ml) 10 ml IV BID HERB Sodium Chloride (Sodium Chloride Flush Syringe 10 Ml) 10 ml IV PRN PRN PRN Reason: LINE FLUSH Review of Systems Respiratory: shortness of breath Exam - Constitutional Vitals: Temp Pulse Resp BP Pulse Ox 98.8 F 119 H 18 121/66 100 12/13/18 02:55 12/13/18 02:55 12/13/18 02:55 12/13/18 02:55 12/13/18 02:55 General appearance: Present: no acute distress - EENT Eyes: Present: EOM intact ENT: hearing intact - Neck Neck: Present: normal ROM - Respiratory Respiratory effort: normal Respiratory: bilateral: CTA - Cardiovascular Rhythm: regular - Extremities Extremities: no ischemia, No edema Peripheral Pulses: within normal limits - Abdominal General gastrointestinal: Present: deferred Male genitourinary: Present: deferred - Rectal Rectal Exam: deferred - Integumentary Integumentary: Present: warm, dry - Musculoskeletal Musculoskeletal: strength equal bilaterally - Psychiatric Psychiatric: cooperative - Neurologic Neurologic: moves all extremities Results - Labs CBC & Chem 7: 12/13/18 01:09 12/13/18 01:09 Labs: Laboratory Last Values WBC 9.8 K/mm3 (4.5-11.0) 12/13/18 01:09 RBC 1.55 M/mm3 (3.65-5.03) L 12/13/18 01:09 Hgb 4.8 gm/dl (11.8-15.2) L* 12/13/18 01:09 Hct 14.8 % (35.5-45.6) L* 12/13/18 01:09 MCV 95 fl (84-94) H 12/13/18 01:09 MCH 31 pg (28-32) 12/13/18 01:09 MCHC 32 % (32-34) 12/13/18 01:09 RDW 20.5 % (13.2-15.2) H 12/13/18 01:09 Plt Count 329 K/mm3 (140-440) 12/13/18 01:09 Lymph % (Auto) 15.2 % (13.4-35.0) 12/13/18 01:09 [place] % (Auto) 6.1 % (0.0-7.3) 12/13/18 01:09 Eos % (Auto) 0.7 % (0.0-4.3) 12/13/18 01:09 Baso % (Auto) 0.3 % (0.0-1.8) 12/13/18 01:09 Lymph # 1.5 K/mm3 (1.2-5.4) 12/13/18 01:09 [place] # 0.6 K/mm3 (0.0-0.8) 12/13/18 01:09 Eos # 0.1 K/mm3 (0.0-0.4) 12/13/18 01:09 Baso # 0.0 K/mm3 (0.0-0.1) 12/13/18 01:09 Seg Neutrophils % 77.7 % (40.0-70.0) H 12/13/18 01:09 Seg Neutrophils # 7.6 K/mm3 (1.8-7.7) 12/13/18 01:09 PT 13.6 Sec. (12.2-14.9) 12/13/18 04:45 INR 1.05 (0.87-1.13) 12/13/18 04:45 APTT 21.3 Sec. (24.2-36.6) L 12/13/18 04:45 Sodium 139 mmol/L (137-145) 12/13/18 01:09 Potassium 3.6 mmol/L (3.6-5.0) 12/13/18 01:09 Chloride 102.6 mmol/L (98-107) 12/13/18 01:09 Carbon Dioxide 23 mmol/L (22-30) 12/13/18 01:09 Anion Gap 17 mmol/L 12/13/18 01:09 BUN 35 mg/dL (9-20) H 12/13/18 01:09 Creatinine 1.0 mg/dL (0.8-1.5) 12/13/18 01:09 Estimated GFR > 60 ml/min 12/13/18 01:09 BUN/Creatinine Ratio 35 % 12/13/18 01:09 Glucose 185 mg/dL (75-100) H 12/13/18 01:09 Calcium 8.2 mg/dL (8.4-10.2) L 12/13/18 01:09 Troponin T < 0.010 ng/mL (0.00-0.029) 12/13/18 03:38 Blood Type A POSITIVE 12/13/18 03:38 Antibody Screen Negative 12/13/18 03:38 Crossmatch See Detail 12/13/18 03:38 Assessment and Plan Assessment and plan: 1. Acute GIB 2. Acute blood loss anemia (etiology unclear) 3. Acute dyspnea (likely due to 1&2) 4. Obesity Plan: Pt is admitted for acute blood loss anemia Monitor H&H Q6hrs x3 Consult GI for eval 2 unit of PRBCs Keep NPO until seen by GI Hold all PO meds until ok by GI Replace potassium Further plan per GI recommendation Advance Directives: Yes VTE prophylaxis?: Mechanical Contraindication Mechanical VTE Prophylaxis: Contraindicated Plan of care discussed with patient/family: Yes
[2018-12-13] MEDS ORDERED: SODIUM CHLORIDE 0.9% 500 ML 500 ML IV SCH (10:30)
[2018-12-13 11:19] LABS: Hematocrit 16.9 % (35.5-45.6); Hemoglobin 5.5 gm/dl (11.8-15.2)
--- NOTE | 2018-12-13 11:31 | Gastroenterology Consultation ---
<VISHAL FERGUSON - Last Filed: 12/13/18 12:11> History of Present Illness - Reason for Consult Consult date: 12/13/18 GIB Requesting physician: STEPHEN HUANG - History of Present Illness Patient is a 38 y/o male with PMH of HTN who presented to ED with c/o dark stool and associated syncope. Upon admission, he was found to be severely anemic with H/H 4.8/14.8. GI has been consulted for GIB. This morning patient was resting in bed w/o acute distress and mother at bedside. He reports black stool x ~4 days with mild associated intermittent epigastric discomfort. Last BM was overnight with no active signs of bleeding this am. Denies fever, CP, SOB, wt loss, N/V, hematemesis, diarrhea, constipation, or hematochezia. No prior hx of GI bleeding, liver disease, or PUD, but admits to recent heavy NSAID use (Ibuprofen daily x 1 month) for a muscle strain. Past History Past Medical History: hypertension, other (obesity) Past Surgical History: No surgical history Social history: other (alcohol). denies: smoking Family history: no significant family history Medications and Allergies Allergies Allergy/AdvReac Type Severity Reaction Status Date / Time No Known Allergies Allergy Verified 12/13/18 15:28 Home Medications Medication Instructions Recorded Confirmed Last Taken Type Acetaminophen [Tylenol Arthritis] 650 mg PO Q6HR PRN #30 tablet.er 05/17/18 Unknown Rx Aspirin [Aspirin BABY CHEW TAB] 81 mg PO QDAY #30 tab.chew 05/17/18 Unknown Rx Ibuprofen [Motrin] 600 mg PO Q8H PRN #30 tablet 05/17/18 Unknown Rx levoFLOXacin [Levaquin] 750 mg PO QDAY #6 tablet 05/17/18 Unknown Rx Cyclobenzaprine [Flexeril] 10 mg PO TID PRN #12 tablet 10/30/18 Unknown Rx Active Meds: Active Medications Pantoprazole Sodium 80 mg/ (Sodium Chloride) 100 mls @ 10 mls/hr IV DIRECT HERB Last Admin: 12/13/18 02:49 Dose: 8 mg/hr, 10 mls/hr Documented by: Sodium Chloride (Nacl 0.9% 500 Ml) 500 mls @ 50 mls/hr IV DIRECT HERB Ondansetron HCl (Zofran) 4 mg IV Q8H PRN PRN Reason: Nausea And Vomiting Promethazine HCl (Phenergan) 25 mg MN Q6HR PRN PRN Reason: N/V IF NPO AND NO IV ACCESS Sodium Chloride (Sodium Chloride Flush Syringe 10 Ml) 10 ml IV BID HERB Last Admin: 12/13/18 10:38 Dose: Not Given Documented by: Sodium Chloride (Sodium Chloride Flush Syringe 10 Ml) 10 ml IV PRN PRN PRN Reason: LINE FLUSH medications reviewed/updated as required Review of Systems - Review of Systems All systems: negative Cardiovascular: syncope Gastrointestinal: abdominal pain (epigastric), melena Exam - Constitutional Vital Signs: Temp Pulse Resp BP Pulse Ox 98.6 F 105 H 19 110/68 98 12/13/18 08:23 12/13/18 08:23 12/13/18 08:23 12/13/18 08:23 12/13/18 08:23 General appearance: no acute distress, obese - EENT Eyes: PERRL, EOM intact ENT: hearing intact - Respiratory Respiratory effort: normal Respiratory: bilateral: CTA - Cardiovascular Rhythm: other (tachycardia) - Gastrointestinal General gastrointestinal: Present: soft, non-tender, non-distended, normal bowel sounds - Neurologic Neurological: alert and oriented x3 - Labs CBC & Chem 7: 12/13/18 10:10 12/13/18 01:09 Lab Results: Laboratory Results - last 24 hr 12/13/18 12/13/18 12/13/18 01:09 01:09 03:38 WBC 9.8 RBC 1.55 L Hgb 4.8 L* Hct 14.8 L* MCV 95 H MCH 31 MCHC 32 RDW 20.5 H Plt Count 329 Lymph % (Auto) 15.2 [place] % (Auto) 6.1 Eos % (Auto) 0.7 Baso % (Auto) 0.3 Lymph # 1.5 [place] # 0.6 Eos # 0.1 Baso # 0.0 Seg Neutrophils % 77.7 H Seg Neutrophils # 7.6 PT INR APTT Sodium 139 Potassium 3.6 Chloride 102.6 Carbon Dioxide 23 Anion Gap 17 BUN 35 H Creatinine 1.0 Estimated GFR > 60 BUN/Creatinine Ratio 35 Glucose 185 H Calcium 8.2 L Troponin T < 0.010 < 0.010 Blood Type Antibody Screen Crossmatch 12/13/18 12/13/18 12/13/18 03:38 04:45 10:10 WBC RBC Hgb Hct MCV MCH MCHC RDW Plt Count Lymph % (Auto) [place] % (Auto) Eos % (Auto) Baso % (Auto) Lymph # [place] # Eos # Baso # Seg Neutrophils % Seg Neutrophils # PT 13.6 INR 1.05 APTT 21.3 L Sodium Potassium Chloride Carbon Dioxide Anion Gap BUN Creatinine Estimated GFR BUN/Creatinine Ratio Glucose Calcium Troponin T < 0.010 Blood Type A POSITIVE Antibody Screen Negative Crossmatch See Detail 12/13/18 10:10 WBC RBC Hgb 5.5 L* Hct 16.9 L* MCV MCH MCHC RDW Plt Count Lymph % (Auto) [place] % (Auto) Eos % (Auto) Baso % (Auto) Lymph # [place] # Eos # Baso # Seg Neutrophils % Seg Neutrophils # PT INR APTT Sodium Potassium Chloride Carbon Dioxide Anion Gap BUN Creatinine Estimated GFR BUN/Creatinine Ratio Glucose Calcium Troponin T Blood Type Antibody Screen Crossmatch Assessment and Plan 1.UGIB/melena 2.acute blood loss anemia 3.epigastric pain -afebrile -WBC, plt, and INR WNL -BUN 35 -H/H 5.5/16.9 s/p 1 unit of PRBCs; 2nd unit pending transfusion (4.8/14.8 on admission) -continue to monitor H/H and transfuse as needed -pt reports black stool x ~ 4 days with last episode overnight. No hematemesis or hematochezia. -currently HD stable -etiology-likely 2/2 ulcer given hx of recent heavy NSAID use vs other -will schedule for EGD today for further evaluation -Keep NPO -continue protonix gtt and supportive care -will follow <MAEVE OLIVERA R - Last Filed: 12/13/18 15:30> Medications and Allergies Active Meds: Active Medications Pantoprazole Sodium 80 mg/ (Sodium Chloride) 100 mls @ 10 mls/hr IV DIRECT HERB Last Admin: 12/13/18 13:16 Dose: 8 mg/hr, 10 mls/hr Documented by: Sodium Chloride (Nacl 0.9% 500 Ml) 500 mls @ 50 mls/hr IV DIRECT HERB Sodium Chloride (Nacl 0.9% 1000 Ml) 1,000 mls @ 50 mls/hr IV DIRECT HERB Ondansetron HCl (Zofran) 4 mg IV Q8H PRN PRN Reason: Nausea And Vomiting Promethazine HCl (Phenergan) 25 mg MN Q6HR PRN PRN Reason: N/V IF NPO AND NO IV ACCESS Sodium Chloride (Sodium Chloride Flush Syringe 10 Ml) 10 ml IV BID HERB Last Admin: 12/13/18 10:38 Dose: Not Given Documented by: Sodium Chloride (Sodium Chloride Flush Syringe 10 Ml) 10 ml IV PRN PRN PRN Reason: LINE FLUSH Exam - Constitutional Vital Signs: Temp Pulse Resp BP Pulse Ox 98.6 F 105 H 19 164/90 98 12/13/18 08:23 12/13/18 08:23 12/13/18 08:23 12/13/18 11:10 12/13/18 11:21 - Labs CBC & Chem 7: 12/13/18 10:10 12/13/18 01:09 Lab Results: Laboratory Results - last 24 hr 12/13/18 12/13/18 12/13/18 01:09 01:09 03:38 WBC 9.8 RBC 1.55 L Hgb 4.8 L* Hct 14.8 L* MCV 95 H MCH 31 MCHC 32 RDW 20.5 H Plt Count 329 Lymph % (Auto) 15.2 [place] % (Auto) 6.1 Eos % (Auto) 0.7 Baso % (Auto) 0.3 Lymph # 1.5 [place] # 0.6 Eos # 0.1 Baso # 0.0 Seg Neutrophils % 77.7 H Seg Neutrophils # 7.6 PT INR APTT Sodium 139 Potassium 3.6 Chloride 102.6 Carbon Dioxide 23 Anion Gap 17 BUN 35 H Creatinine 1.0 Estimated GFR > 60 BUN/Creatinine Ratio 35 Glucose 185 H Calcium 8.2 L Troponin T < 0.010 < 0.010 Blood Type Antibody Screen Crossmatch 12/13/18 12/13/18 12/13/18 03:38 04:45 10:10 WBC RBC Hgb Hct MCV MCH MCHC RDW Plt Count Lymph % (Auto) [place] % (Auto) Eos % (Auto) Baso % (Auto) Lymph # [place] # Eos # Baso # Seg Neutrophils % Seg Neutrophils # PT 13.6 INR 1.05 APTT 21.3 L Sodium Potassium Chloride Carbon Dioxide Anion Gap BUN Creatinine Estimated GFR BUN/Creatinine Ratio Glucose Calcium Troponin T < 0.010 Blood Type A POSITIVE Antibody Screen Negative Crossmatch See Detail 12/13/18 10:10 WBC RBC Hgb 5.5 L* Hct 16.9 L* MCV MCH MCHC RDW Plt Count Lymph % (Auto) [place] % (Auto) Eos % (Auto) Baso % (Auto) Lymph # [place] # Eos # Baso # Seg Neutrophils % Seg Neutrophils # PT INR APTT Sodium Potassium Chloride Carbon Dioxide Anion Gap BUN Creatinine Estimated GFR BUN/Creatinine Ratio Glucose Calcium Troponin T Blood Type Antibody Screen Crossmatch Assessment and Plan 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 5 d hx of melena and dizziness. Likely PUD Plan as above.
[2018-12-13] MEDS ORDERED: SODIUM CHLORIDE 0.9% 1000 ML 1,000 ML IV SCH (15:00)
--- NOTE | 2018-12-13 15:21 | Anesthesia Day of Surgery ---
Anesthesia Day of Surgery - Day of Surgery Patient Examined: Yes Patient H&P Reviewed: Yes Patient is NPO: Yes
--- NOTE | 2018-12-13 15:21 | Anesthesia Consultation ---
Anesthesia Consult and Med Hx Date of service: 12/13/18 - Airway Anesthetic Teeth Evaluation: Good ROM Head & Neck: Adequate Mental/Hyoid Distance: Adequate Mallampati Class: Class III Intubation Access Assessment: Possibly Difficult (large ewing - potential difficult mask) - Pulmonary Exam CTA: Yes - Cardiac Exam Cardiac Exam: RRR - Pre-Operative Health Status ASA Pre-Surgery Classification: ASA3 Proposed Anesthetic Plan: MAC - Pulmonary Hx Smoking: No Hx Asthma: Yes (no inhaler use in several years) SOB: Yes (on admission presumed 2/2 anemia; resolved with transfusion) Hx Sleep Apnea: Yes (noncompliant with CPAP) - Cardiovascular System Hx Hypertension: Yes Hx Heart Attack/AMI: No Hx Percutaneous Transluminal Coronary Angioplasty (PTCA): No - Central Nervous System CVA: No - Gastrointestinal Hx Ulcer: No Hx Gastroesophageal Reflux Disease: No - Endocrine Hx Renal Disease: No Hx Liver Disease: No Hx Insulin Dependent Diabetes: No Hx Non-Insulin Dependent Diabetes: No Hx Thyroid Disease: No - Hematic Hx Anemia: Yes (severe anemia on admission now s/p 1 unit pRBCs) - Other Systems Hx Obesity: Yes (BMI 46) - Additional Comments Anesthesia Medical History Comments: No hx anesthetic complications.
[2018-12-13] MEDS ORDERED: PROPOFOL 200 MG/20 ML VIAL IV ONE ×2 (15:26)
[2018-12-13] MEDS ORDERED: SODIUM CHLORIDE 0.9% 1000 ML 1,000 ML ONE (15:28)
--- NOTE | 2018-12-13 15:53 | Post Operative Note ---
Pre-op diagnosis: melena Post-op diagnosis: other (Antral ulcers, small) Findings: 1. Few small ulcers in antrum, white-based, 5-8 mm, no stigmata of bleeding. 2. Otherwise normal EGD. 3. No evidence of old or new blood. Procedure: EGD Anesthesia: MAC Surgeon: MAEVE OLIVERA Estimated blood loss: none Pathology: none Condition: stable Disposition: floor (1. Advance diet 2. Monitor H/H and transfuse as needed. 3. PPI x 2month and outpatient f/u 4. May need to consider colonoscopy and small bowel evaluation in future if has further bleed.)
[2018-12-13] MEDS: PANTOPRAZOLE 40 MG INJ IV SCH (22:22)
[2018-12-14 03:53] LABS: Amphetamine Screen,Urine PRESUMPTIVE NEGATIVE; Benzodiazepines Screen,Urine PRESUMPTIVE NEGATIVE; Cannabinoid Screen,Urine PRESUMPTIVE NEGATIVE; Cocaine Screen,Urine PRESUMPTIVE NEGATIVE; Methadone Screen,Urine PRESUMPTIVE NEGATIVE; Opiate Screen,Urine PRESUMPTIVE NEGATIVE
[2018-12-14 05:50] LABS: Hemoglobin 5.8 gm/dl (11.8-15.2)
[2018-12-14 05:51] LABS: Hematocrit 17.7 % (35.5-45.6)
[2018-12-14] MEDS ORDERED: SODIUM CHLORIDE 0.9% 500 ML 500 ML IV ONE (06:50)
--- NOTE | 2018-12-14 07:25 | Event Note ---
Date: 12/13/18 HAD EGD Possible d/c tomorrow Advance diet
[2018-12-14] MEDS: PANTOPRAZOLE 40 MG INJ IV SCH ×2 (09:23→21:40)
[2018-12-14] MEDS: COLCHICINE 0.6 MG CAP PO SCH ×2 (09:23→21:39)
--- NOTE | 2018-12-14 09:46 | Gastroenterology Progress Note ---
<VISHAL FERGUSON - Last Filed: 12/14/18 09:46> Assessment and Plan 1.UGIB/melena 2.acute blood loss anemia 3.epigastric pain -afebrile -WBC, plt, and INR WNL -BUN 35 -H/H 5.8/17.7-inappropriate rise s/p 2 units PRBCs yesterday (4.8/14.8 on admission) -continue to monitor H/H and transfuse as needed -no active signs of bleeding overnight or this am per pt/nursing. -s/p EGD yesterday that showed few small ulcers in antrum (white-based; 5-8mm; no stigmata of bleeding), other johnson normal -clinically, patient is HD stable with no abd pain or N/V. Tolerating clears. -given low H/H this am will order stat repeat labs and NM bleeding scan for further evaluation (r/o possible other source of bleeding) -avoid NSAIDs -continue PPI and supportive care -further recommendations to follow above results Subjective Date of service: 12/14/18 Principal diagnosis: GIB Interval history: Patient resting in bed this am w/o acute distress or GI complaints. No active signs of bleeding overnight or this am. Objective - Constitutional Vitals: Temp Pulse Resp BP Pulse Ox 98.6 F 95 H 20 116/80 98 12/14/18 07:35 12/14/18 07:35 12/14/18 07:35 12/14/18 07:35 12/14/18 07:35 General appearance: no acute distress, obese - EENT Eyes: PERRL, EOM intact ENT: hearing intact - Respiratory Respiratory effort: normal Respiratory: bilateral: CTA (anterior) - Cardiovascular Rhythm: regular - Gastrointestinal General gastrointestinal: Present: soft, non-tender, non-distended, normal bowel sounds, other (obese) - Neurologic Neurological: alert and oriented x3 - Labs CBC & Chem 7: 12/14/18 04:20 12/13/18 01:09 Labs: Laboratory Results - last 24 hr 12/13/18 12/13/18 12/13/18 03:38 10:10 10:10 Hgb 5.5 L* Hct 16.9 L* Troponin T < 0.010 Urine Opiates Screen Urine Methadone Screen Ur Barbiturates Screen Ur Phencyclidine Scrn Ur Amphetamines Screen U Benzodiazepines Scrn Urine Cocaine Screen U Marijuana (THC) Screen Drugs of Abuse Note Blood Type A POSITIVE Antibody Screen Negative Crossmatch See Detail 12/14/18 12/14/18 03:25 04:20 Hgb 5.8 L* Hct 17.7 L* Troponin T Urine Opiates Screen Presumptive negative Urine Methadone Screen Presumptive negative Ur Barbiturates Screen Presumptive negative Ur Phencyclidine Scrn Presumptive negative Ur Amphetamines Screen Presumptive negative U Benzodiazepines Scrn Presumptive negative Urine Cocaine Screen Presumptive negative U Marijuana (THC) Screen Presumptive negative Drugs of Abuse Note Disclamer Blood Type Antibody Screen Crossmatch <MAEVE OLIVERA R - Last Filed: 12/14/18 15:08> Assessment and Plan Pt seen and examined. No further BMs since admission. Monitor H/H. Objective - Constitutional Vitals: Temp Pulse Resp BP Pulse Ox 98.5 F 87 18 118/82 100 12/14/18 13:55 12/14/18 13:55 12/14/18 13:55 12/14/18 13:55 12/14/18 13:55 - Labs CBC & Chem 7: 12/14/18 10:17 12/13/18 01:09 Labs: Laboratory Results - last 24 hr 12/13/18 12/14/18 12/14/18 03:38 03:25 04:20 Hgb 5.8 L* Hct 17.7 L* Urine Opiates Screen Presumptive negative Urine Methadone Screen Presumptive negative Ur Barbiturates Screen Presumptive negative Ur Phencyclidine Scrn Presumptive negative Ur Amphetamines Screen Presumptive negative U Benzodiazepines Scrn Presumptive negative Urine Cocaine Screen Presumptive negative U Marijuana (THC) Screen Presumptive negative Drugs of Abuse Note Disclamer Blood Type A POSITIVE Antibody Screen Negative Crossmatch See Detail 12/14/18 10:17 Hgb 6.2 L Hct 18.9 L* Urine Opiates Screen Urine Methadone Screen Ur Barbiturates Screen Ur Phencyclidine Scrn Ur Amphetamines Screen U Benzodiazepines Scrn Urine Cocaine Screen U Marijuana (THC) Screen Drugs of Abuse Note Blood Type Antibody Screen Crossmatch
[2018-12-14 10:43] LABS: Hemoglobin 6.2 gm/dl (11.8-15.2)
[2018-12-14 10:45] LABS: Hematocrit 18.9 % (35.5-45.6)
--- NOTE | 2018-12-14 11:55 | Progress Note ---
Assessment and Plan Assessment and plan: Upper GI bleed. Patient status post PRBCs but hemoglobin still not adequate. We will transfuse 2 more units of PRBCs. Follow-up H&H. Patient is s/p EGD yesterday that showed few small ulcers in antrum (white-based; 5-8mm; no stigmata of bleeding), other johnson normal. Continue to avoid NSAIDs and continue PPI. Acute blood loss anemia. Etiology secondary to above. Patient for bleeding scan today. Epigastric pain. Pain control. History Interval history: No new issues overnight. Hospitalist Physical - Constitutional Vitals: Temp Pulse Resp BP Pulse Ox 98.5 F 93 H 18 136/78 99 12/14/18 11:15 12/14/18 11:15 12/14/18 11:15 12/14/18 11:15 12/14/18 11:15 General appearance: Present: no acute distress - EENT Eyes: Present: PERRL, EOM intact ENT: hearing intact, clear oral mucosa, dentition normal - Neck Neck: Present: supple, normal ROM - Respiratory Respiratory effort: normal Respiratory: bilateral: CTA - Cardiovascular Rhythm: regular Heart Sounds: Present: S1 & S2. Absent: gallop, rub - Extremities Extremities: no ischemia, No edema, Full ROM - Abdominal General gastrointestinal: soft, non-tender, non-distended, normal bowel sounds - Integumentary Integumentary: Present: clear, warm, dry - Neurologic Neurologic: CNII-XII intact, moves all extremities Results - Labs CBC & Chem 7: 12/14/18 10:17 12/13/18 01:09 Labs: Laboratory Last Values WBC 9.8 K/mm3 (4.5-11.0) 12/13/18 01:09 RBC 1.55 M/mm3 (3.65-5.03) L 12/13/18 01:09 Hgb 6.2 gm/dl (11.8-15.2) L 12/14/18 10:17 Hct 18.9 % (35.5-45.6) L* 12/14/18 10:17 MCV 95 fl (84-94) H 12/13/18 01:09 MCH 31 pg (28-32) 12/13/18 01:09 MCHC 32 % (32-34) 12/13/18 01:09 RDW 20.5 % (13.2-15.2) H 12/13/18 01:09 Plt Count 329 K/mm3 (140-440) 12/13/18 01:09 Lymph % (Auto) 15.2 % (13.4-35.0) 12/13/18 01:09 [place] % (Auto) 6.1 % (0.0-7.3) 12/13/18 01:09 Eos % (Auto) 0.7 % (0.0-4.3) 12/13/18 01:09 Baso % (Auto) 0.3 % (0.0-1.8) 12/13/18 01:09 Lymph # 1.5 K/mm3 (1.2-5.4) 12/13/18 01:09 [place] # 0.6 K/mm3 (0.0-0.8) 12/13/18 01:09 Eos # 0.1 K/mm3 (0.0-0.4) 12/13/18 01:09 Baso # 0.0 K/mm3 (0.0-0.1) 12/13/18 01:09 Seg Neutrophils % 77.7 % (40.0-70.0) H 12/13/18 01:09 Seg Neutrophils # 7.6 K/mm3 (1.8-7.7) 12/13/18 01:09 PT 13.6 Sec. (12.2-14.9) 12/13/18 04:45 INR 1.05 (0.87-1.13) 12/13/18 04:45 APTT 21.3 Sec. (24.2-36.6) L 12/13/18 04:45 Sodium 139 mmol/L (137-145) 12/13/18 01:09 Potassium 3.6 mmol/L (3.6-5.0) 12/13/18 01:09 Chloride 102.6 mmol/L (98-107) 12/13/18 01:09 Carbon Dioxide 23 mmol/L (22-30) 12/13/18 01:09 Anion Gap 17 mmol/L 12/13/18 01:09 BUN 35 mg/dL (9-20) H 12/13/18 01:09 Creatinine 1.0 mg/dL (0.8-1.5) 12/13/18 01:09 Estimated GFR > 60 ml/min 12/13/18 01:09 BUN/Creatinine Ratio 35 % 12/13/18 01:09 Glucose 185 mg/dL (75-100) H 12/13/18 01:09 Calcium 8.2 mg/dL (8.4-10.2) L 12/13/18 01:09 Troponin T < 0.010 ng/mL (0.00-0.029) 12/13/18 10:10 Urine Opiates Screen Presumptive negative 12/14/18 03:25 Urine Methadone Screen Presumptive negative 12/14/18 03:25 Ur Barbiturates Screen Presumptive negative 12/14/18 03:25 Ur Phencyclidine Scrn Presumptive negative 12/14/18 03:25 Ur Amphetamines Screen Presumptive negative 12/14/18 03:25 U Benzodiazepines Scrn Presumptive negative 12/14/18 03:25 Urine Cocaine Screen Presumptive negative 12/14/18 03:25 U Marijuana (THC) Screen Presumptive negative 12/14/18 03:25 Drugs of Abuse Note Disclamer 12/14/18 03:25 Blood Type A POSITIVE 12/13/18 03:38 Antibody Screen Negative 12/13/18 03:38 Crossmatch See Detail 12/13/18 03:38 Active Medications - Current Medications Current Medications: Generic Name Dose Route Start Last Admin Trade Name Freq PRN Reason Stop Dose Admin Colchicine 0.6 mg 12/14/18 06:00 12/14/18 09:23 Colchicine PO 0.6 mg BID HERB Administration Sodium Chloride 1,000 mls @ 50 mls/hr 12/13/18 15:00 Nacl 0.9% 1000 Ml IV DIRECT HERB Ondansetron HCl 4 mg 12/13/18 05:04 Zofran IV Q8H PRN Nausea And Vomiting Pantoprazole Sodium 40 mg 12/13/18 22:00 12/14/18 09:23 Protonix IV 40 mg BID HERB Administration Promethazine HCl 25 mg 12/13/18 05:19 Phenergan VT Q6HR PRN N/V IF NPO AND NO IV ACCESS Sodium Chloride 10 ml 12/13/18 10:00 12/14/18 09:23 Sodium Chloride Flush Syringe 10 Ml IV 10 ml BID HERB Administration Sodium Chloride 10 ml 12/13/18 05:04 Sodium Chloride Flush Syringe 10 Ml IV PRN PRN LINE FLUSH
[2018-12-14] MEDS: ACETAMINOPHEN 325 MG TAB PO PRN (12:56)
--- NOTE | 2018-12-14 16:03 | Nuclear Medicine Report ---
GI bleeding Scan HISTORY: anemia, GI bleed. TECHNIQUE: Patient was given 20 mCi of technetium UltraTag. COMPARISON: None FINDINGS: There is normal parenchymal uptake in the liver with blood pool activity identified. There is no abnormal radiotracer uptake within the abdomen to suggest hemorrhage. IMPRESSION: Unremarkable exam. Signer Name: J Luis Lynch MD Signed: 12/14/2018 3:59 PM Workstation Name: [id number]
[2018-12-15 06:38] LABS: Hematocrit 20.4 % (35.5-45.6); Hemoglobin 6.7 gm/dl (11.8-15.2)
[2018-12-15] MEDS: COLCHICINE 0.6 MG CAP PO SCH ×2 (09:14→21:34)
[2018-12-15] MEDS: PANTOPRAZOLE 40 MG INJ IV SCH (09:14)
[2018-12-15] MEDS ORDERED: SODIUM CHLORIDE 0.9% 500 ML 500 ML IV SCH (10:36)
--- NOTE | 2018-12-15 10:37 | Discharge Summary ---
Providers - Providers Date of Admission: 12/13/18 05:04 Date of discharge: 12/16/18 Attending physician: VIJAY GONCALVES 12/13/18 07:19 Consult to Physician [CONS] Routine Comment: Consulting Provider: [facility] Physician Instructions: Reason For Exam: GIB Primary care physician: [employer] Hospitalization Reason for admission: GIB Condition: Fair Hospital course: Patient is a 38 y/o male with PMH of HTN who presented to ED with c/o dark stool and associated syncope. Upon admission, he was found to be severely anemic with H/H 4.8/14.8. The patient was admitted with diagnosis of acute blood loss anemia and GI bleeding for which GI was consulted. He reported black stool x ~4 days with mild associated intermittent epigastric discomfort. After admission the patient denied hematemesis, diarrhea, constipation, or hematochezia. No prior hx of GI bleeding, liver disease, or PUD, but admitted to recent heavy NSAID use (Ibuprofen daily x 1 month) for a muscle strain. GI performed EGD which revealed a few small ulcers and antral with white-based 5-8 mm size and no stigmata of bleeding. Otherwise normal EGD. The patient received a total of 4 units of PRBCs with stabilization of his hemoglobin. Diet was advanced which she tolerated. GI recommended PPI x 2month and outpatient f/u. May need to consider colonoscopy and small bowel evaluation in future if has further bleed. Dedicated discharge time 35 minutes. Disposition: - TO HOME OR SELFCARE Time spent for discharge: 35 - Discharge Diagnoses (1) PUD (peptic ulcer disease) Status: Acute (2) Symptomatic anemia Status: Acute (3) Upper GI bleed Status: Acute Core Measure Documentation - Palliative Care Palliative Care/ Comfort Measures: Not Applicable - Core Measures Any of the following diagnoses?: none Exam - Constitutional Vitals: Temp Pulse Resp BP Pulse Ox 98.9 F 91 H 18 118/72 97 12/15/18 03:50 12/15/18 08:49 12/15/18 03:50 12/15/18 03:50 12/15/18 03:50 General appearance: Present: no acute distress, well-nourished - EENT Eyes: Present: PERRL ENT: hearing intact, clear oral mucosa - Neck Neck: Present: supple, normal ROM - Respiratory Respiratory effort: normal Respiratory: bilateral: CTA - Cardiovascular Heart Sounds: Present: S1 & S2. Absent: rub, click - Extremities Extremities: pulses symmetrical, No edema Peripheral Pulses: within normal limits - Abdominal General gastrointestinal: Present: soft, non-tender, non-distended, normal bowel sounds Male genitourinary: Present: normal - Integumentary Integumentary: Present: clear, warm, dry - Musculoskeletal Musculoskeletal: gait normal, strength equal bilaterally - Psychiatric Psychiatric: appropriate mood/affect, intact judgment & insight - Neurologic Neurologic: CNII-XII intact, moves all extremities Plan Activity: advance as tolerated Weight Bearing Status: Weight Bear as Tolerated Diet: regular Follow up with: PRIMARY CARE, [Primary Care Provider] - 3-5 Days MAEVE OLIVERA MD [Staff Physician] - 7 Days Prescriptions: Pantoprazole Sodium [Protonix] 40 mg PO BID #120 tab
--- NOTE | 2018-12-15 12:33 | Gastroenterology Progress Note ---
<VISHAL FERGUSON - Last Filed: 12/15/18 13:40> Assessment and Plan 1.UGIB/melena 2.acute blood loss anemia 3.epigastric pain -afebrile -WBC, plt, and INR WNL -H/H 6.7/20.4-trending up s/p blood transfusion (4.8/14.8 on admission) -continue to monitor H/H and transfuse as needed -no active signs of bleeding overnight or this am -s/p EGD that showed few small ulcers in antrum (white-based; 5-8mm; no stigmata of bleeding), other johnson normal -bleeding scan yesterday negative for active bleeding -clinically, patient is stable with no abd pain or N/V. Tolerating diet. -avoid NSAIDs -continue PPI and supportive care -patient okay to be d/c per GI standpoint on PPI with f/u in clinic in 1-2 weeks -will sign off, please call if needed Subjective Date of service: 12/15/18 Principal diagnosis: GIB Interval history: No acute distress or active signs of bleeding overnight or this am (BM x 1 this am with dark greenish stool). Denies abd pain or N/V. Tolerating diet. Objective - Constitutional Vitals: Temp Pulse Resp BP Pulse Ox 98.9 F 91 H 18 118/72 97 12/15/18 03:50 12/15/18 08:49 12/15/18 03:50 12/15/18 03:50 12/15/18 03:50 General appearance: no acute distress, obese - EENT Eyes: PERRL, EOM intact ENT: hearing intact - Respiratory Respiratory effort: normal - Cardiovascular Rhythm: other (tachycardia) - Gastrointestinal General gastrointestinal: Present: soft, non-tender, non-distended, normal bowel sounds, other (+obese) - Neurologic Neurological: alert and oriented x3 - Labs CBC & Chem 7: 12/15/18 06:12 12/13/18 01:09 Labs: Laboratory Results - last 24 hr 12/13/18 12/15/18 03:38 06:12 Hgb 6.7 L Hct 20.4 L Blood Type A POSITIVE Antibody Screen Negative Crossmatch See Detail <MAEVE OLIVERA - Last Filed: 12/15/18 15:03> Assessment and Plan No evidence of ongoing bleed. H/H response to transfusion unsatisfactory. - would ensure appropriate response tomorrow, and if okay, then D/C to home. Objective - Constitutional Vitals: Temp Pulse Resp BP Pulse Ox 98.3 F 100 H 18 156/78 98 12/15/18 14:38 12/15/18 14:38 12/15/18 14:38 12/15/18 14:38 12/15/18 14:38 - Labs CBC & Chem 7: 12/15/18 06:12 12/13/18 01:09 Labs: Laboratory Results - last 24 hr 12/13/18 12/15/18 03:38 06:12 Hgb 6.7 L Hct 20.4 L Blood Type A POSITIVE Antibody Screen Negative Crossmatch See Detail
[2018-12-15] MEDS: PANTOPRAZOLE 40 MG TAB PO SCH (21:34)
[2018-12-16 05:02] LABS: Basophils % (Auto) 0.3 % (0.0-1.8); Eosinophils # (Auto) 0.2 K/mm3 (0.0-0.4); Eosinophils % (Auto) 2.8 % (0.0-4.3); Hematocrit 22.7 % (35.5-45.6); Hemoglobin 7.4 gm/dl (11.8-15.2); Lymphocytes # (Auto) 1.3 K/mm3 (1.2-5.4); Mean Corpuscular HGB Conc 33 % (32-34); Mean Corpuscular Volume 90 fl (84-94); Monocytes # (Auto) 0.5 K/mm3 (0.0-0.8); Monocytes % (Auto) 8.8 % (0.0-7.3); Platelet Count 306 K/mm3 (140-440); Red Blood Count 2.53 M/mm3 (3.65-5.03); Red Cell Distribution Width 17.3 % (13.2-15.2)
[2018-12-16 08:40] VITALS: BP 130/85
[2018-12-16] MEDS: COLCHICINE 0.6 MG CAP PO SCH (09:01)
[2018-12-16] MEDS: PANTOPRAZOLE 40 MG TAB PO SCH (09:01)
[2018-12-16] MEDS: ACETAMINOPHEN 325 MG TAB PO PRN (09:03)
--- NOTE | 2018-12-16 12:08 | Progress Note ---
Assessment and Plan Assessment and plan: Upper GI bleed. Patient status post PRBCs but hemoglobin still not adequate. The patient received 1 more unit of PRBCs and monitor overnight to ensure H&H is stable prior to discharge. Follow-up H&H. Patient is s/p EGD that showed few small ulcers in antrum (white-based; 5-8mm; no stigmata of bleeding), other johnson normal. Continue to avoid NSAIDs and continue PPI. Acute blood loss anemia. Etiology secondary to above. Patient for bleeding scan today. Epigastric pain. Pain control. - Patient Problems (1) PUD (peptic ulcer disease) Status: Acute (2) Symptomatic anemia Status: Acute (3) Upper GI bleed Status: Acute History Interval history: No new issues overnight. Hospitalist Physical - Constitutional Vitals: Temp Pulse Resp BP Pulse Ox 98.8 F 89 20 130/85 96 12/16/18 08:06 12/16/18 08:27 12/16/18 08:06 12/16/18 08:06 12/16/18 08:06 General appearance: Present: no acute distress, well-nourished - EENT Eyes: Present: PERRL, EOM intact ENT: hearing intact, clear oral mucosa, dentition normal - Neck Neck: Present: supple, normal ROM - Respiratory Respiratory effort: normal Respiratory: bilateral: CTA - Cardiovascular Rhythm: regular Heart Sounds: Present: S1 & S2. Absent: gallop, rub - Extremities Extremities: no ischemia, No edema, Full ROM - Abdominal General gastrointestinal: soft, non-tender, non-distended, normal bowel sounds - Integumentary Integumentary: Present: clear, warm, dry - Neurologic Neurologic: CNII-XII intact, moves all extremities Results - Labs CBC & Chem 7: 12/16/18 04:12 12/13/18 01:09 Labs: Laboratory Last Values WBC 5.7 K/mm3 (4.5-11.0) 12/16/18 04:12 RBC 2.53 M/mm3 (3.65-5.03) L 12/16/18 04:12 Hgb 7.4 gm/dl (11.8-15.2) L 12/16/18 04:12 Hct 22.7 % (35.5-45.6) L 12/16/18 04:12 MCV 90 fl (84-94) 12/16/18 04:12 MCH 29 pg (28-32) 12/16/18 04:12 MCHC 33 % (32-34) 12/16/18 04:12 RDW 17.3 % (13.2-15.2) H 12/16/18 04:12 Plt Count 306 K/mm3 (140-440) 12/16/18 04:12 Lymph % (Auto) 23.0 % (13.4-35.0) 12/16/18 04:12 [place] % (Auto) 8.8 % (0.0-7.3) H 12/16/18 04:12 Eos % (Auto) 2.8 % (0.0-4.3) 12/16/18 04:12 Baso % (Auto) 0.3 % (0.0-1.8) 12/16/18 04:12 Lymph # 1.3 K/mm3 (1.2-5.4) 12/16/18 04:12 [place] # 0.5 K/mm3 (0.0-0.8) 12/16/18 04:12 Eos # 0.2 K/mm3 (0.0-0.4) 12/16/18 04:12 Baso # 0.0 K/mm3 (0.0-0.1) 12/16/18 04:12 Seg Neutrophils % 65.1 % (40.0-70.0) 12/16/18 04:12 Seg Neutrophils # 3.7 K/mm3 (1.8-7.7) 12/16/18 04:12 PT 13.6 Sec. (12.2-14.9) 12/13/18 04:45 INR 1.05 (0.87-1.13) 12/13/18 04:45 APTT 21.3 Sec. (24.2-36.6) L 12/13/18 04:45 Sodium 139 mmol/L (137-145) 12/13/18 01:09 Potassium 3.6 mmol/L (3.6-5.0) 12/13/18 01:09 Chloride 102.6 mmol/L (98-107) 12/13/18 01:09 Carbon Dioxide 23 mmol/L (22-30) 12/13/18 01:09 Anion Gap 17 mmol/L 12/13/18 01:09 BUN 35 mg/dL (9-20) H 12/13/18 01:09 Creatinine 1.0 mg/dL (0.8-1.5) 12/13/18 01:09 Estimated GFR > 60 ml/min 12/13/18 01:09 BUN/Creatinine Ratio 35 % 12/13/18 01:09 Glucose 185 mg/dL (75-100) H 12/13/18 01:09 Calcium 8.2 mg/dL (8.4-10.2) L 12/13/18 01:09 Troponin T < 0.010 ng/mL (0.00-0.029) 12/13/18 10:10 Urine Opiates Screen Presumptive negative 12/14/18 03:25 Urine Methadone Screen Presumptive negative 12/14/18 03:25 Ur Barbiturates Screen Presumptive negative 12/14/18 03:25 Ur Phencyclidine Scrn Presumptive negative 12/14/18 03:25 Ur Amphetamines Screen Presumptive negative 12/14/18 03:25 U Benzodiazepines Scrn Presumptive negative 12/14/18 03:25 Urine Cocaine Screen Presumptive negative 12/14/18 03:25 U Marijuana (THC) Screen Presumptive negative 12/14/18 03:25 Drugs of Abuse Note Disclamer 12/14/18 03:25 Blood Type A POSITIVE 12/13/18 03:38 Antibody Screen Negative 12/13/18 03:38 Crossmatch See Detail 12/13/18 03:38
== END 2018-12-16 12:01 | disposition home or self-care (01) | DRG 378 ==
LOC: SUATTDRO 00:18 → ED 00:18 → 4A 05:04
PROVIDERS: ADMIT Internal Medicine; ATTEND Hospitalist
PROC: 0DJ08ZZ Inspection of Upper Intestinal Tract, Via Natural or Artificial Opening Endoscopic (ICD-10-PCS; principal; 2018-12-13)
PROC: 30233N1 Transfusion of Nonautologous Red Blood Cells into Peripheral Vein, Percutaneous Approach (ICD-10-PCS; 2018-12-13)
DX: K25.4 Chronic or unspecified gastric ulcer with hemorrhage (principal); D62 Acute posthemorrhagic anemia; Z68.43 Body mass index [BMI] 50.0-59.9, adult; K92.1 Melena; E66.9 Obesity, unspecified; J45.909 Unspecified asthma, uncomplicated; I10 Essential (primary) hypertension; Z79.899 Other long term (current) drug therapy; Z79.82 Long term (current) use of aspirin
CPT/HCPCS: 36415; 36430; 71045; 78278; 80048; 80307; 82271; 84484; 85014; 85018; 85025; 85610; 85730; 86850; 86900; 86901; 86920; 93005; 93010; 96365; 96375; G0378; A9560; C9113; J1642; J2704; J7030; J7040; P9016

== ENCOUNTER 2021-06-21 21:22 | Emergency (ER) | payer OTHER ==
[2021-06-21] MEDS ORDERED: PANTOPRAZOLE 40 MG TAB PO ONE (22:20)
[2021-06-21] MEDS ORDERED: ACETAMINOPHEN 500 MG TAB PO ONE (22:20)
--- NOTE | 2021-06-21 22:22 | Emergency Department Report ---
ED General Adult HPI - General Chief complaint: Chest Pain Stated complaint: chest wall pain Time Seen by Provider: 06/21/21 22:14 Source: patient, EMS ( EMS documentation not available at time of chart dictation ), RN notes reviewed, old records reviewed Mode of arrival: Ambulatory Limitations: No Limitations - History of Present Illness Initial comments: The patient is a 41-year-old gentleman, with a body mass index of 52, history of endoscopically confirmed gastric ulcers, suspected morbid obesity, sleep apnea, hypertension, diabetes, presenting to the ER today with a complaint of anterior chest wall pain. This pain started about 1 hour prior to ER arrival. The pain does not radiate to the back, arms or neck. There is no vomiting, diaphoresis or exertional shortness of breath. Patient denies travel, surgery, immobilization, DVT/PE risk factors. I saw this patient for similar symptoms a few years ago, and he had a negative CT scan of the chest at that time. Denies personal/family history of DVT/PE/ACS. Chest wall pain is aching, increases with palpation, and decreases with rest and position. The patient reports that he thus far has not started CPAP for obstructive sleep apnea, but he is supposed to follow-up later on this month for presumed obstructive sleep apnea with his outpatient physician. He felt improved in the emergency room after Tylenol and Motrin -: hour(s) Location: chest Radiation: non-radiation Quality: other Consistency: other Improves with: other Worsens with: other Associated Symptoms: denies other symptoms - Related Data Previous Rx's Medication Instructions Recorded Last Taken Type Acetaminophen [Tylenol Arthritis] 650 mg PO Q6HR PRN #30 tablet.er 05/17/18 Unknown Rx Colchicine 0.6 mg PO BID capsule 12/15/18 Unknown Rx Acetaminophen [Acetaminophen ER 650 mg PO Q8HR PRN #30 tab 06/22/21 Unknown Rx TAB] Pantoprazole Sodium [Protonix] 40 mg PO BID #60 tab 06/22/21 Unknown Rx Allergies Allergy/AdvReac Type Severity Reaction Status Date / Time No Known Allergies Allergy Verified 12/13/18 15:28 ED Review of Systems ROS: Stated complaint: CHEST PAIN Other details as noted in HPI Comment: All other systems reviewed and negative ED Past Medical Hx - Past Medical History Hx Hypertension: Yes Hx Heart Attack/AMI: No Hx Liver Disease: No Hx Renal Disease: No Hx Arthritis: Yes (gout) Hx Asthma: Yes (no inhaler use in several years) - Social History Smoking Status: Never Smoker - Medications Home Medications: Home Medications Medication Instructions Recorded Confirmed Last Taken Type Acetaminophen [Tylenol Arthritis] 650 mg PO Q6HR PRN #30 tablet.er 05/17/18 12/14/18 Unknown Rx Colchicine 0.6 mg PO BID capsule 12/15/18 Unknown Rx Acetaminophen [Acetaminophen ER 650 mg PO Q8HR PRN #30 tab 06/22/21 Unknown Rx TAB] Pantoprazole Sodium [Protonix] 40 mg PO BID #60 tab 06/22/21 Unknown Rx ED Physical Exam - General Limitations: No Limitations General appearance: alert, in no apparent distress, obese - Head Head exam: Present: atraumatic, normocephalic - Eye Eye exam: Present: normal appearance, EOMI. Absent: nystagmus - ENT ENT exam: Present: normal exam, normal orophraynx, mucous membranes moist, normal external ear exam - Neck Neck exam: Present: normal inspection, full ROM. Absent: tenderness, meningismus - Respiratory Respiratory exam: Present: normal lung sounds bilaterally, chest wall tenderness. Absent: respiratory distress, wheezes, rales, rhonchi, stridor, decreased breath sounds - Cardiovascular Cardiovascular Exam: Present: regular rate, normal rhythm, normal heart sounds. Absent: bradycardia, tachycardia, irregular rhythm, systolic murmur, diastolic murmur, rubs, gallop - GI/Abdominal GI/Abdominal exam: Present: soft. Absent: distended, tenderness, guarding, rebound, rigid, pulsatile mass - Rectal Rectal exam: Present: deferred - Extremities Exam Extremities exam: Present: normal inspection, full ROM, other (2+ pulses noted in the bilateral upper and lower extremities. There is no palpable cord. negative Homans sign. Muscular compartments are soft. The pelvis is stable.). Absent: pedal edema, calf tenderness - Back Exam Back exam: Present: normal inspection, full ROM. Absent: tenderness, CVA tend erness (R), CVA tenderness (L), paraspinal tenderness, vertebral tenderness - Neurological Exam Neurological exam: Present: alert, oriented X3, normal gait, other (No facial droop. Tongue midline. Extraocular movements intact bilaterally. Facial sensation intact to light touch in V1, V2, V3 distribution bilaterally. 5 and a 5 strength in 4 extremities. Sensation intact to light touch in 4 extremities.). Absent: motor sensory deficit - Psychiatric Psychiatric exam: Present: normal affect, normal mood - Skin Skin exam: Present: warm, dry, intact, normal color. Absent: rash ED Course Vital Signs 06/21/21 06/21/21 06/21/21 22:17 22:30 22:59 Temperature 98 F Pulse Rate 103 H 101 H 93 H Respiratory 20 13 Rate Blood Pressure 168/131 Blood Pressure 164/101 [Left] O2 Sat by Pulse 100 97 Oximetry O2 Sat by Pulse Oximetry [ Digit-Finger] 06/21/21 06/21/21 06/21/21 23:00 23:16 23:30 Temperature Pulse Rate 85 88 89 Respiratory 13 15 22 Rate Blood Pressure 127/70 126/103 Blood Pressure [Left] O2 Sat by Pulse 98 98 97 Oximetry O2 Sat by Pulse Oximetry [ Digit-Finger] 06/22/21 01:17 Temperature Pulse Rate Respiratory Rate Blood Pressure Blood Pressure [Left] O2 Sat by Pulse Oximetry O2 Sat by Pulse 99 Oximetry [ Digit-Finger] - Reevaluation(s) Reevaluation #1: 06/22/21 00:46 Differential diagnosis, including but not limited to: Costochondritis, GERD, gastritis, hiatal hernia, pneumonia, coronary artery disease Assessment and plan: 41-year-old gentleman, who is not currently tachycardic, tachypneic or hypoxic, who denies DVT and pulmonary embolism risk factors, who is low risk by Wells criteria for pulmonary embolism, EKG unchanged x x1, troponin negative x1, with reproducible chest wall tenderness Patient has equal pulses in the upper and lower extremities, no pulsatile abdominal mass, and an unremarkable x-ray of the chest, therefore, aortic disease is very unlikely. Patient at low risk for major adverse cardiac event as per heart score. Given reproducibility, history and physical, do not have a high suspicion for GERD, gastritis, hiatal hernia at this time. Pneumonia is unlikely given history, physical, and x-ray findings. Physical exam remarkable for reproducible chest wall tenderness. Low risk for major adverse cardiac event as per heart score. I saw this patient for similar symptoms a few years ago, where he had a negative CTA of the chest. We will treat him supportively and symptomatically. Repeat troponin, repeat EKG pending. Presuming these are unremarkable and unchanged, patient is again encouraged to diet, exercise, lose weight, take Tylenol for chest wall pain, follow-up with outpatient primary care, pulmonology/sleep medicine for presumed obstructive sleep apnea, as well as cardiology. Reassess 06/22/21 00:48 06/22/21 01:17 Patient on cell phone on reassessment. He endorses improvement in his symptoms. He is in no acute distress. Heart rate 84 bpm. EKG #2 is unchanged from luis alfredo or. Chest x-ray unremarkable, recheck repeat troponin pending 06/22/21 02:11 Final reassessment. Patient in no acute distress. Vital signs acceptable. Troponin negative x2. Endorses improvement in symptoms. Return precautions reviewed. All questions answered - Pulse Oximetry Interpretation Digit-Finger Initial Pulse Oximetry Readin O2 Sat by Pulse Oximetry: 99 Actions Taken: none ED Medical Decision Making - Lab Data Result diagrams: 06/21/21 22:27 06/21/21 22:27 Vital Signs 06/21/21 06/21/21 06/21/21 22:17 22:30 22:59 Temperature 98 F Pulse Rate 103 H 101 H 93 H Respiratory 20 13 Rate Blood Pressure 168/131 Blood Pressure 164/101 [Left] O2 Sat by Pulse 100 97 Oximetry 06/21/21 06/21/21 06/21/21 23:00 23:16 23:30 Temperature Pulse Rate 85 88 89 Respiratory 13 15 22 Rate Blood Pressure 127/70 126/103 Blood Pressure [Left] O2 Sat by Pulse 98 98 97 Oximetry Lab Results 06/21/21 06/21/21 06/21/21 Range/Units 22:27 22:27 22:27 WBC 8.1 (4.5-11.0) K/mm3 RBC 4.42 (3.65-5.03) M/mm3 Hgb 11.6 L (11.8-15.2) gm/dl Hct 36.9 (35.5-45.6) % MCV 84 (84-94) fl MCH 26 L (28-32) pg MCHC 32 (32-34) % RDW 16.1 H (13.2-15.2) % Plt Count 286 (140-440) K/mm3 PT 12.9 (12.2-14.9) Sec. INR 0.88 (0.87-1.13) Sodium (137-145) mmol/L Potassium (3.6-5.0) mmol/L Chloride (98-107) mmol/L Carbon Dioxide (22-30) mmol/L Anion Gap mmol/L BUN (9-20) mg/dL Creatinine (0.8-1.3) mg/dL Estimated GFR ml/min BUN/Creatinine Ratio % Glucose (75-100) mg/dL Calcium (8.4-10.2) mg/dL Troponin T < 0.010 (0.00-0.029) ng/mL 06/21/21 Range/Units 22:27 WBC (4.5-11.0) K/mm3 RBC (3.65-5.03) M/mm3 Hgb (11.8-15.2) gm/dl Hct (35.5-45.6) % MCV (84-94) fl MCH (28-32) pg MCHC (32-34) % RDW (13.2-15.2) % Plt Count (140-440) K/mm3 PT (12.2-14.9) Sec. INR (0.87-1.13) Sodium 143 (137-145) mmol/L Potassium 4.4 (3.6-5.0) mmol/L Chloride 104.1 (98-107) mmol/L Carbon Dioxide 25 (22-30) mmol/L Anion Gap 18 mmol/L BUN 21 H (9-20) mg/dL Creatinine 1.1 (0.8-1.3) mg/dL Estimated GFR > 60 ml/min BUN/Creatinine Ratio 19 % Glucose 100 (75-100) mg/dL Calcium 8.9 (8.4-10.2) mg/dL Troponin T (0.00-0.029) ng/mL Vital Signs 06/21/21 06/21/21 06/21/21 22:17 22:30 22:59 Temperature 98 F Pulse Rate 103 H 101 H 93 H Respiratory 20 13 Rate Blood Pressure 168/131 Blood Pressure 164/101 [Left] O2 Sat by Pulse 100 97 Oximetry O2 Sat by Pulse Oximetry [ Digit-Finger] 06/21/21 06/21/21 06/21/21 23:00 23:16 23:30 Temperature Pulse Rate 85 88 89 Respiratory 13 15 22 Rate Blood Pressure 127/70 126/103 Blood Pressure [Left] O2 Sat by Pulse 98 98 97 Oximetry O2 Sat by Pulse Oximetry [ Digit-Finger] 06/22/21 01:17 Temperature Pulse Rate Respiratory Rate Blood Pressure Blood Pressure [Left] O2 Sat by Pulse Oximetry O2 Sat by Pulse 99 Oximetry [ Digit-Finger] - EKG Data -: EKG Interpreted by Pa EKG shows normal: sinus rhythm Rate: normal - EKG Data When compared to previous EKG there are: no significant change Interpretation: unchanged when compared t 06/22/21 00:45 The EKG today is interpreted at 22: 11 Sinus rhythm, 95 bpm. Normal axis, normal intervals, normal P wave axis, QTC 4 1 4 ms. This EKG is essentially unremarkable, it is not a STEMI , and it is unchanged from prior EKG from 2019 - Radiology Data Radiology results: pending, report reviewed, image reviewed CHEST 2 VIEWS INDICATION / CLINICAL INFORMATION: ACUTE CHEST PAIN. COMPARISON: 12/13/2018 FINDINGS: SUPPORT DEVICES: None. HEART / MEDIASTINUM: No significant abnormality. LUNGS / PLEURA: No significant pulmonary or pleural abnormality. No pneumothorax. ADDITIONAL FINDINGS: No significant additional findings. IMPRESSION: 1. No acute findings. Signer Name: Kishore Patterson DO Signed: 06/22/2021 1:00 AM Workstation Name: [employer] Critical care attestation.: If time is entered above; I have spent that time in minutes in the direct care of this critically ill patient, excluding procedure time. ED Disposition Clinical Impression: Chest wall pain, Body mass index (BMI) of 50-59.9 in adult Disposition: 01 HOME / SELF CARE / HOMELESS Is pt being admited?: No Does the pt Need Aspirin: No Condition: Good Instructions: Nonspecific Chest Pain, Adult, Costochondritis Additional Instructions: Please avoid heavy lifting and strenuous physical activities. Please take the prescribed pain medications as needed and directed. Alternate ice packs and heat packs as needed for pain relief. Recommend aggressive weight loss, diet, lifestyle modifications and exercise. Patient most likely has costochondritis, and long-term obstructive sleep apnea. Recommend follow-up with a air director, sleep specialist or primary care doctor for probable obstructive sleep apnea within the next 3 to 5 days. Please return to the emergency room right away with new pain, worsened pain, migration of pain, projectile vomiting, change in mental status, confusion, inab ility tolerate liquid feeds, new, worsened or different symptoms not present on the initial emergency room evaluation Referrals: [facility] [Provider Group] - 3-[facility] - [facility]-5 Days CORRINE BRIAN MD [Staff Physician] - 3-5 Days Forms: Work/School Release Form(ED) Heart Score - HEART Score History: Slightly suspicious EKG: Non-specific Age: < 45 Risk factors: > 3 risk factors or hx of atherosclerotic disease Troponin: < normal limit HEART Score: 3 - EKG Read Time Time EKG Completed: 22:11 EKG Read Time: 22:11 - Critical Actions Critical Actions: 0-3 pts:0.9-1.7%risk of adverse cardiac event.Candidate for discharge
[2021-06-21 23:55] LABS: BUN/Creatinine Ratio 19; Blood Urea Nitrogen 21 mg/dL (9-20); Calcium 8.9 mg/dL (8.4-10.2); Hemolysis Index 4
[2021-06-22 00:21] LABS: INR 0.88 (0.87-1.13)
[2021-06-22 00:26] LABS: Hematocrit 36.9 % (35.5-45.6); Hemoglobin 11.6 gm/dl (11.8-15.2); Mean Corpuscular HGB Conc 32 % (32-34); Mean Corpuscular Volume 84 fl (84-94); Platelet Count 286 K/mm3 (140-440); Red Blood Count 4.42 M/mm3 (3.65-5.03); Red Cell Distribution Width 16.1 % (13.2-15.2)
--- NOTE | 2021-06-22 02:04 | XRay Report ---
CHEST 2 VIEWS INDICATION / CLINICAL INFORMATION: ACUTE CHEST PAIN. COMPARISON: 12/13/2018 FINDINGS: SUPPORT DEVICES: None. HEART / MEDIASTINUM: No significant abnormality. LUNGS / PLEURA: No significant pulmonary or pleural abnormality. No pneumothorax. ADDITIONAL FINDINGS: No significant additional findings. IMPRESSION: 1. No acute findings. Signer Name: Kishore Patterson DO Signed: 06/22/2021 2:00 AM Workstation Name: [id number]
[2021-06-22 02:41] VITALS: BP 135/99
--- NOTE | 2021-06-22 11:23 | Electrocardiograph Report ---
[facility] Test Date: 2021-06-21 Test Time: 22:11:29 Pat Name: KLAUS ALEXANDER Department: Room: Gender: M Postal Service Clerk: DARREN : 1980 Requested By: CAROLYN MOORE Order Number: [id number] Reading MD: Reji Rodriguez Measurements Intervals [place] Rate: 95 P: 26 UT: 168 QRS: 28 QRSD: 95 T: 24 QT: 329 QTc: 414 Interpretive Statements Sinus rhythm No previous ECG available for comparison Electronically Signed On 06-22-2021 11:23:24 EDT by Reji Rodriguez
--- NOTE | 2021-06-30 17:37 | Electrocardiograph Report ---
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
== END 2021-06-22 02:20 | disposition home or self-care (01) ==
LOC: ED 21:22
DX: R07.89 Other chest pain (principal); Z68.43 Body mass index [BMI] 50.0-59.9, adult; I10 Essential (primary) hypertension; M19.90 Unspecified osteoarthritis, unspecified site; J45.909 Unspecified asthma, uncomplicated; Z79.899 Other long term (current) drug therapy
CPT/HCPCS: 36415; 71046; 80048; 84484; 85027; 85610; 93005; 99284